=== PATIENT | female | born 1970 | race Caucasian/White ===

== ENCOUNTER → 2020-02-23 | Outpatient (CLI) | payer OTHER ==
[~2020-02-23] MED LIST: GADOTERATE 7.5 MMOL/15 ML VIAL ONE
== END | disposition home or self-care (01) ==
LOC: RAD 08:47
PROVIDERS: ATTEND Family Medicine
DX: G44.89 Other headache syndrome (principal); H53.9 Unspecified visual disturbance
CPT/HCPCS: 70553; A9575

== ENCOUNTER 2020-06-09 12:58 | Emergency (ER) | payer OTHER ==
[~2020-06-09] VITALS: Ht 170.2 cm; Wt 109.1 kg
--- NOTE | 2020-06-09 13:10 | NUR ---
EKG IN TRIAGE
--- NOTE | 2020-06-09 13:35 | NUR ---
PT C/O UPPER ABD PAIN SINCE 599 THIS AM. Addendum: 06/09/20 at 1347 by SILVER PT DECLINES ANY PAIN MEDICATION AT THIS TIME.
[2020-06-09 13:54] LABS: MICROSCOPIC INDICATED
[2020-06-09 14:03] LABS: BASOPHILS % (AUTO) 1 % (0-1); EOSINOPHILS % (AUTO) 1 % (1-7); LYMPHOCYTES % (AUTO) 15 % (22-44); MEAN CORPUSCULAR HEMOGLOBIN 29.7 pg (27.0-34.8); MEAN CORPUSCULAR HGB CONC 34.3 g/dL (32.4-35.8); MEAN PLATELET VOLUME 9.7 fL (7.4-10.4); MONOCYTES % (AUTO) 4 % (2-9); NEUTROPHILS % (AUTO) 80 % (42-75); PLATELET COUNT 230 x10^3/uL (130-400); RED BLOOD COUNT 5.49 x10^6/uL (3.82-5.3); RED CELL DISTRIBUTION WIDTH 13.6 % (9.6-15.2)
[2020-06-09 14:05] LABS: MD NO
[2020-06-09 14:08] LABS: ALANINE AMINOTRANSFERASE 182 U/L (12-78); ALBUMIN 3.9 g/dL (3.4-5.0); ANION GAP 7 mmol/L (5-15); CALCIUM 9.3 mg/dL (8.5-10.1); CHLORIDE 105 mmol/L (98-107); CREATININE 0.95 mg/dL (0.55-1.02)
[2020-06-09 14:09] LABS: ALKALINE PHOSPHATASE 92 U/L (45-117); BILIRUBIN,TOTAL 2.1 mg/dL (0.2-1.0); TOTAL PROTEIN 8.7 g/dL (6.4-8.2)
[2020-06-09 15:55] VITALS: BP 133/80
--- NOTE | 2020-06-09 15:56 | NUR ---
PT IN NAD. VSS.
== END 2020-06-09 16:21 | disposition home or self-care (01) ==
LOC: ED 14:24
DX: K70.10 Alcoholic hepatitis without ascites (principal); R94.31 Abnormal electrocardiogram [ECG] [EKG]; R11.2 Nausea with vomiting, unspecified
CPT/HCPCS: 36415; 76700; 80053; 80074; 81001; 83690; 85025; 87086; 93005; 99285